=== PATIENT | male | born 1960 | race Caucasian/White ===

== ENCOUNTER → 2021-08-25 | Outpatient (CLI) | payer OTHER ==
[~2021-08-25] MED LIST: ASPIRIN EC81 M1; BENICAR40 MG; CARDIZEM CD180 MG; CARVEDILOL12.5 MG; CENTRUM SILVER1 EAC4; CLARITIN10 MG; JARDIANCE25 MG; KLOR-CON M2020 MEQ; METFORMIN HCL500 MG; OMEPRAZOLE40 MG; SIMVASTATIN40 MG; SINGULAIR 10 MG10 M1; VICTOZA 3-0.6 MG/0.1; [UNRECOGNIZED DRUG - OTHER]
== END ==
LOC: M.CT 08:31
PROVIDERS: ATTEND Family Medicine
DX: Z13.6 Encounter for screening for cardiovascular disorders (principal); I25.10 Atherosclerotic heart disease of native coronary artery without angina pectoris